=== PATIENT | female | born 1980 | race Two or more races ===

== ENCOUNTER 2025-06-07 16:14 | Outpatient (AMB) | payer OTHER, SELFPAY ==
--- NOTE | 2025-06-07 16:21 | MHC.PC.OV ---
Vital Signs 06/07/25 16:31 Height 5 ft 6.5 in Weight 191 lb 2 oz BMI 30.4 BP 122/72 Blood Pressure Location Rt brachial Position Sitting Respiration 17 Pulse 111 H Pulse Source Pulse Oximeter Temp 97.7 F Temp Source Oral Pulse Oximetry (%) 98 Oxygen Delivery Method Room Air Intake Visit Reasons: SUPPORT SERVICE TECH-Establish Care Intake Note: Patient present to establish care. Circuit Walker Required: No Circuit Walker Name: Doctor speaks tuvaluan Allergies No Known Allergies Allergy (Verified 06/07/25 16:26) Medication List - Last Reconciled 06/08/25 by Kevin Gooden MD alprazolam 0.5 mg PO TID PRN azelastine 2 sprays intranasal BID escitalopram oxalate 20 mg PO QAM hydroxyzine pamoate 50 mg PO BID PRN ibuprofen 800 mg PO Q8H polyethylene glycol 3350 (Miralax) 17 grams PO DAILY zolpidem 10 mg PO BEDTIME Tobacco use date assessed: 06/07/25 Dental Screening Dental Screen Date: 06/07/25 Did you have a dental visit in the last 12 months?: Yes Did you have a dental problem in the last 6 months where you did not have access to dental care?: No Was dental information given to patient?: Patient has dentist HPI HPI Comments History of Present Illness Details History of Present Illness The patient is a 44 year old female presenting for a general medical evaluation due to not having seen a doctor in three years, and with complaints of headaches and dizziness. Psychiatric Conditions: The patient has established psychiatric diagnoses including bipolar disorder, post-traumatic stress disorder (PTSD), anxiety, and schizophrenia. She receives mental health care from a psychiatrist, Dr. Peres, and takes several medications including alprazolam in the morning, afternoon, and evening, as well as zolpidem. Headaches: The patient reports experiencing a lot of headaches and associated dizziness. She also reports a constantly stuffy nose, which may contribute to her headaches. Right Shoulder Pain: The patient has had persistent right arm pain since an accident. She was previously offered surgery for the condition but declined. Tachycardia: The patient was found to have a heart rate of 111 beats per minute during the visit, which may be related to her medications. Constipation: She reports issues with bowel movements, specifically constipation. Health Maintenance: The patient has not had a medical check-up in three years. There is an unclear history regarding a diagnosis of diabetes; a doctor previously told her she had it, but this was later refuted by another provider due to her mental health status. The patient reports getting sick easily as the reason for wearing a mask. Her last Pap smear is unknown. Surgical History: - The patient denies any prior surgeries. Medications: - Alprazolam, taken in the morning, afternoon, and at night - Zolpidem - Droxicin (phonetic, likely hydroxyzine) - The patient is unsure if she takes Escitalopram. Social History: - The patient is originally from [place], [place]. - She lives at home. - She has one son and multiple grandchildren. Past Medical History - Psychiatric: Bipolar disorder, PTSD, anxiety, schizophrenia. - Musculoskeletal: Right arm injury secondary to an accident. - Hospitalizations: Previously hospitalized for 10 days for a non-surgical issue. - Past Evaluation: An evaluation ruled out a hernia. Health Maintenance - Ordered comprehensive baseline lab work including a complete blood count (CBC), comprehensive metabolic panel (CMP), thyroid panel, hemoglobin A1c, lipid panel, vitamin B12, folate, vitamin D, and serologies for hepatitis B, C, HIV, and syphilis. - Discussed mammogram screening, advising it is due at age 46. [facility] Family History (Updated 06/07/25 @ 16:29 by Willie Crandall CMA) Other Mental health disorder Social History (Updated 06/07/25 @ 16:29 by Willie Crandall CMA) Housing: House Alcohol intake: never Patient Tobacco Use Status: Never used Tobacco e-Cigarette/Vaping Use: Never Used service: No Current occupational status: disabled Cognitive needs: Yes Hearing needs: No Vision needs: No Questionnaire PHQ-9 Over the last 2 weeks, how often have you been bothered by any of the following problems? 1. Little interest or pleasure in doing things: nearly every day 2. Feeling down, depressed, or hopeless: nearly every day 3. Trouble falling or staying asleep, or sleeping too much: nearly every day 4. Feeling tired or having little energy: nearly every day 5. Poor appetite or overeating: nearly every day 6. Feeling bad about yourself - or that you are a failure or have let yourself or your family down: nearly every day 7. Trouble concentrating on things, such as reading the newspaper or watching television: nearly every day 8. Moving or speaking so slowly that other people could have noticed. Or the opposite - being so fidgety or restless that you have been moving around a lot more than usual: several days 9. Thoughts that you would be better off or of hurting yourself in some way: not at all Total score: 22 Depression Screening Interpretation: Positive Depression Screening Follow-up: Existing condition and In treatment Depression Screening Done: Yes 31721 - PHQ-9 Billing: Yes Source: Developed by Drs. Hal Us, Larissa Beard, Nicholas Andujar and colleagues, with an educational sudha from [employer]. Thrive Questionnaire Date Thrive assessed: 06/07/25 I am a: Patient What is your living situation today?: I have a steady place to live Within the past 12 months, did the food you bought not last and you didn't have the money to get more?: Never true Within the past 12 months, did you worry whether your food would run out before you got money to buy more?: Never true Do you have trouble paying for medicines?: No Do you have trouble getting transportation to medical appointments?: No Do you have trouble paying your heating and electricity bill?: No Do you have trouble taking care of your child, family member or friend?: No Do you have trouble with day-to-day activities such as bathing, preparing meals, shopping, managing finances, etc.?: No Are you currently unemployed and looking for a job?: No Are you interested in more education?: No Please select the resources that you would like help with: None Currently or been in a relationship where the following occur: No concerns reported THRIVE Score: 0 AUDIT C Alcohol Use Questionnaire (AUDIT-C) 1. How often do you have a drink containing alcohol?: Never Total Score: 0 DAMIR-7 AMB Questionnaire DAMIR-7 Date DAMIR - 7 assessed: 06/07/25 Feeling nervous, anxious, or on edge: 3 = Nearly every day Not being able to stop or control worryin = More than half the days Worrying too much about different things: 2 = More than half the days Trouble relaxin = More than half the days Being so restless that it is hard to sit still: 2 = More than half the days Becoming easily annoyed or irritable: 2 = More than half the days Feeling afraid as if something awful might happen: 2 = More than half the days Total DAMIR-7 score (0-4 normal; 5-9 mild; 10-14 moderate; 15-21 severe): 15 Source: Developed by Drs. Hal Us, Larissa Beard, Nicholas Andujar and colleagues, with an educational sudha from [employer]. DAMIR-7 Assessment Billing DAMIR-7 Assessment Tool: DAMIR-7 Assessment 45687 Review of Systems Narrative Review of Systems - CONSTITUTIONAL: Reports getting sick easily. - NEUROLOGICAL: Reports headaches and dizziness. - CARDIOVASCULAR: Reports having tachycardia. - GASTROINTESTINAL: Reports constipation. - MUSCULOSKELETAL: Reports pain in her right arm/shoulder since an accident. - ENT: Reports her nose is always congested. - PSYCHIATRIC: Reports history of bipolar disorder, PTSD, anxiety, and schizophrenia. 10-point ROS reviewed and negative except as noted in HPI Physical exam (Primary Care) Vital Signs: Last Vital Signs Temp 97.7 F 06/07/25 16:31 Pulse 111 H 06/07/25 16:31 Resp 17 06/07/25 16:31 BP 122/72 06/07/25 16:31 Pulse Ox 98 06/07/25 16:31 Oxygen Delivery Method Room Air 06/07/25 16:31 BMI result Body Mass Index 30.4 Tobacco/Smoking Status: Tobacco use Status Tobacco use date assessed 06/07/25 06/07/25 16:33 Patient Tobacco Use Status Never used Tobacco 06/07/25 16:33 e-Cigarette/Vaping Use Never Used 06/07/25 16:33 PHQ-9: PHQ-9 Score PHQ-9: Total score 22 06/07/25 16:33 Depression Screening Interpretation: Positive Depression Screening Follow-up: Existing condition and In treatment Thrive Assessment: Date of Thrive Assessment Date Thrive assessed 06/07/25 06/07/25 16:23 Currently or been in a relationship where the following occur: No concerns reported Narrative Physical Exam General: Well-appearing, in no acute distress. Vital signs: Tachycardia noted, heart rate at 111. HEENT: Normocephalic, atraumatic. PERRLA, EOMI. Conjunctiva clear, sclera anicteric. Oropharynx clear, mucous membranes moist. TMs intact bilaterally. Neck: Supple, no lymphadenopathy, no thyromegaly, no JVD or carotid bruits. Cardiovascular: RRR, normal S1/S2, no murmurs, rubs, or gallops. Peripheral pulses 2+ and symmetric. No edema. Respiratory: Lungs clear to auscultation bilaterally, no wheezes, rales, or rhonchi. Normal effort. Abdomen: Soft, non-tender, non-distended. Normoactive bowel sounds. No hepatosplenomegaly, no masses. MSK: Limited range of motion in the right shoulder, difficulty lifting, passive and active range of motion limited. Skin: Warm, dry, intact. No rashes, lesions, or pallor. Neuro: Alert and oriented x3. Cranial nerves II-XII intact. Strength 5/5 throughout. Sensation intact. Reflexes 2+ symmetric. Normal coordination and gait. Psych: Appropriate mood and affect. Normal judgment and insight. Diagnosed with anxiety, schizophrenia, and bipolar disorder. Taking alprazolam and zolpidem. Coding Level of Care Code New Pt Level 4 (72205) Add On Problem Visit Only Diagnoses Bipolar disease, chronic F31.9 PTSD (post-traumatic stress disorder) F43.10 Anxiety F41.9 Schizophrenia F20.9 Stiffness of right shoulder, not elsewhere classified M25.611 Headache R51.9 Right shoulder pain M25.511 Tachycardia R00.0 Constipation K59.00 Use of cane as ambulatory aid Z99.89 Gait instability R26.81 Nasal congestion R09.81 Class 1 obesity E66.811 Additional Codes DAMIR-7 Assessment Billing - DAMIR-7 Assessment Tool: DAMIR-7 Assessment 50497 ([id number]) PHQ-9 - 54531 - PHQ-9 Billing: Yes ([id number]) Assessment & Plan Assessment & Plan (1) Bipolar disease, chronic: Code(s): F31.9 - Bipolar disorder, unspecified Category: Medical (2) PTSD (post-traumatic stress disorder): Code(s): F43.10 - Post-traumatic stress disorder, unspecified Category: Medical (3) Anxiety: Code(s): F41.9 - Anxiety disorder, unspecified Category: Medical (4) Schizophrenia: Code(s): F20.9 - Schizophrenia, unspecified Category: Medical (5) Stiffness of right shoulder, not elsewhere classified: Code(s): M25.611 - Stiffness of right shoulder, not elsewhere classified Category: Medical (6) Headache: Code(s): R51.9 - Headache, unspecified Category: Medical (7) Right shoulder pain: Code(s): M25.511 - Pain in right shoulder Category: Medical (8) Tachycardia: Code(s): R00.0 - Tachycardia, unspecified Category: Medical (9) Constipation: Code(s): K59.00 - Constipation, unspecified Category: Medical (10) Use of cane as ambulatory aid: Code(s): Z99.89 - Dependence on other enabling machines and devices Category: Medical (11) Gait instability: Code(s): R26.81 - Unsteadiness on feet Category: Medical (12) Nasal congestion: Code(s): R09.81 - Nasal congestion Category: Medical (13) Class 1 obesity: Code(s): E66.811 - Obesity, class 1 Category: Medical Plan Consent Consent for the physical examination and planned diagnostic studies, including blood work and imaging, was implicitly obtained through the patient's cooperation and verbal agreement during the consultation. Patient was informed and verbally consented to the use of an ambient scribe for clinic note documentation during this visit. Plan 1. Headaches And Nasal Congestion - To address nasal congestion, which may be contributing to headaches, prescribed a nasal spray to be used as two sprays per nostril twice daily. - For headache pain, prescribed Ibuprofen 600 mg to be taken as needed. 2. Right Shoulder Pain - Will obtain an X-ray of the right shoulder to further evaluate the chronic pain and limited motion. 3. Constipation - Recommended MiraLAX for management of constipation. Discussion Notes I have reviewed the plan of care with the patient. Given that she has not seen a doctor in several years, we will start with a comprehensive set of blood tests to screen for common conditions such as anemia, electrolyte abnormalities, kidney and liver issues, diabetes, high cholesterol, vitamin deficiencies, and several infectious diseases. To address her headaches, I am prescribing ibuprofen for pain and a nasal spray for her chronic nasal congestion, as the two may be related. For her chronic right shoulder pain, we will proceed with an X-ray to better understand the underlying issue. She was advised that she can get her blood drawn at the lab between 9 AM and 4 PM. Patient Instructions - Please go to the laboratory to have your blood drawn. - Use the prescribed nasal spray for your stuffy nose, using two sprays in each nostril twice a day. - Take Ibuprofen 600 mg as needed for your headaches. - You can use MiraLAX to help with constipation. - We will be getting X-rays of your right shoulder. - Your next mammogram is not needed until you turn 46. Medical Decision Making The patient is a 44-year-old female with a significant psychiatric history, including bipolar disorder, PTSD, anxiety, and schizophrenia, who presents to re-establish primary care after a three-year interval. Her chief complaints are headaches and dizziness. She was noted to have tachycardia with a heart rate of 111 bpm, which may be a side effect of her psychiatric medications or related to her anxiety. Given the lack of recent medical oversight, a comprehensive screening approach is warranted. I have ordered extensive lab work to establish a baseline and screen for common chronic illnesses, including a CBC, CMP, lipid panel, HbA1c, thyroid function tests, vitamin levels (B12, D, folate), and infectious diseases (HIV, hepatitis, syphilis). For her headaches, which could be multifactorial, I am starting with symptomatic treatment with ibuprofen and addressing her concomitant nasal congestion with a nasal spray. Her chronic right shoulder pain, which is post-traumatic and associated with limited range of motion on exam, requires further investigation with an X-ray to rule out significant osseous pathology. Her constipation will be managed with MiraLAX. The goal of this visit is to address her acute concerns while initiating a thorough, preventative health evaluation. Total Time Statement 30 MIN Total time spent caring for the patient today includes pre-visit chart review, documentation, review of laboratory and diagnostic imaging results, medication reconciliation, medically necessary evaluation, counseling on diagnoses, care coordination, ordering appropriate tests and medications, review of tests performed by other providers, reporting test results to the patient, and communication with other healthcare providers. Orders: Orders Complete Blood Count Auto Diff Today Z13.9 - Encounter for screening, unspecified Comprehensive Met. Panel Today Z13.9 - Encounter for screening, unspecified Hepatitis C Antibody Today Z13.9 - Encounter for screening, unspecified UA CC w/rflx Micro + Cult Today Z13.9 - Encounter for screening, unspecified Vitamin B12 and Folate Today Z13.9 - Encounter for screening, unspecified Magnesium Today Z13.9 - Encounter for screening, unspecified Hepatitis B Surface Antibody Today Z13.9 - Encounter for screening, unspecified Vitamin D 25-OH (D2 and D3) Today Z13.9 - Encounter for screening, unspecified Hepatitis B Surface Antigen Today Z13.9 - Encounter for screening, unspecified Syphilis Screen Today Z13.9 - Encounter for screening, unspecified TSH reflex Free T4 Today Z13.9 - Encounter for screening, unspecified HIV Ab/Ag Today Z13.9 - Encounter for screening, unspecified Lipid Panel Today Z13.9 - Encounter for screening, unspecified Hemoglobin A1c Today Z13.9 - Encounter for screening, unspecified XR shoulder RT min 2V Today M25.611 - Stiffness of right shoulder, not elsewhere classified Medications: New polyethylene glycol 3350 (Miralax) 17 grams PO DAILY 476 grams 0RF azelastine administer into each nostril 2 sprays intranasal BID 30 mL 0RF ibuprofen 800 mg PO Q8H 30 tabs 0RF
[2025-06-07 16:31] VITALS: BP 122/72; PULSE 111; RESP 17; TEMP 36.5; O2SAT 98; BMI 30.4
--- OUTSIDE RECORDS SUMMARY | 2025-06-07 17:57 | XMS_ITS | Clinical Summary ---
[facility] Address [id number] [place] [id number] Care Team Providers Care Oceanography Professor Name Role Phone Abdullahi Ricardo MD Primary Care Provider [phone] Surgical History Surgery Date Site/Laterality Comments OTHER SURGICAL HISTORY 12/20 PROCEDURE: ---- OTHER ----; COMMENT: Gynecologic unknown surgery TUBAL LIGATION 2002 PROCEDURE: HISTORICAL TUBAL LIGATION OTHER SURGICAL HISTORY 04/2018 PROCEDURE: ---- OTHER ----; COMMENT: Lipoma resection Medical History Medical History Date Comments Anxiety 07/29/2013 DX:Anxiety Depression 07/29/2013 DX:Depression Bipolar disorder ([facility]/HCC V2 4, [facility]/HCC V28) 07/29/2013 DX:Bipolar disorder ([facility]) Nephrolithiasis age 15 DX:Nephrolithias is; COMMENT: [facility] sonogram Family History Medical History Relation Name Comments Diabetes Father Breast cancer Maternal Grandmother Other: pelvic cancer? Mother Relation Name Status Comments Father Alive DM Maternal Grandfather Maternal Grandmother Mother (Age 56) Pancreatic cancer Paternal Grandfather Alive Paternal Grandmother Alive Social History Tobacco Use Types Packs/Day Years Used Date Smoking Tobacco: Never Smokeless Tobacco: Never Alcohol Use Standard Drinks/Week Comments No 0 (1 standard drink = 0.6 oz pur e alcohol) Comments Unknown Sex and Gender Information Value Date Recorded Sex Assigned at Not on file Legal Sex Female 12:25 PM EST Gender Identity Not on file Sexual Orientation Not on file Plan of Treatment Health Maintenance Due Date Last Done Comments Breast Cancer Screening 1981 Hepatitis B Vaccines (1 of 3 - 19+ 3-dose series) 2000 HPV Vaccines (1 - 3-dose SCD M series) 2008 Cervical Cancer Screening: P ap Smear 02/18/2021 02/18/2018 DTaP,Tdap,and Td Vaccines (2 - Td or Tdap) 07/29/2023 07/29/2013 Depression Screening 06/10/2024 COVID-19 Vaccine (1 - 2024-2 6 season) 2025 Influenza Vaccine (#1) 2025 RSV Immunization Adult Patie nts (1 - 1-dose 75+ series) 2056 HIB Vaccines Aged Out No longer eligi ble based on patient's age to complete this topic Hepatitis A Vaccines Aged Out No long er eligible based on patient's age to complete this topic IPV Vaccines Aged Out No longer eligi ble based on patient's age to complete this topic MMR Vaccines Aged Out No longer eligi ble based on patient's age to complete this topic Meningococcal ACWY Vaccine Aged Out N o longer eligible based on patient's age to complete this topic Meningococcal B Vaccine Aged Out No l onger eligible based on patient's age to complete this topic Pneumococcal Vaccine: Pediat rics (0 to 5 Years) and At-Risk Patients (6 to 49 Years) Aged Out No longer eligi ble based on patient's age to complete this topic RSV Immunization Patients Un violeta 20 months Aged Out No longer eligible b ased on patient's age to complete this topic Varicella Vaccines Aged Out No longer eligible based on patient's age to complete this topic Procedures Procedure Name Priority Date/Time Associated Diagnosis Comments PAP SMEAR Routine 02/18/2018 from Last 3 Months or Most Recently Relevant to Health Maintenance Results * Pap smear (02/18/2018) 02/18/2018 Narrative HISTORICAL TESTING LAB RESULTING AGENCY - 02/20/2018 4:41 PM EDT [id number] THINPREP PAP, IMAGED: NEGATIVE FOR SQUAMOUS INTRAEPITHELIAL LESION AND MALIGNANCY . RESULT OF APTIMA HIGH RISK HPV ASSAY: NEGATIVE (SEROTYPES 16,18,31,33,35,39,45,51,52,56,58,59,66,68) RYLIE FRANKEL(ASCP) (CASE ELECTRONICALLY SIGNED 02 20 2018) ADEQUACY: SATISFACTORY. ENDOCERVICAL/TRANSFORMATION ZONE COMPONENT ABSENT. SOURCE: THINPREP PAP HPV ANY DX: REFLEX 16 AND 18, CERVICAL, IMAGED: CLINICAL INFORMATION: HPV ANY DIAGNOSIS. PAP HX NEG [Z12.4, Z01.419] us Giulia Coates CNM LAB CYTOLOGY ORDERABLES Nuzhat garduno Result HISTORICAL TESTING LAB RESULTING AGENCY from Last 3 Months or Most Recently Relevant to Health Maintenance Care Teams Oceanography Professor Relationship Specialty Start Date End Date Abdullahi Ricardo MD PCP - General Internal Medicine 04/04/21
--- OUTSIDE RECORDS SUMMARY | 2025-06-07 17:57 | XMS_ITS | Data Portability ---
Author Organization [employer] [facility], [facility] Medical [facility] Address [address] [place] [address] Care Team Providers Care Hand Tufter Name Role Phone HIM CCA OTHER Assessment Encounter Date Assessment Date Assessment LastModified by Organization Details LastModified Time 11/26/2023 11/26/2023 I have reviewed and agree with the Assessment and Plan as documented by the Information Tech. I provided real-time medical direction via phone for this encounter, and was available for additional phone based assistance as needed. Patient seen for wrist pain to the right wrist. No clear trauma. AVSS and well-appearing with no fever chills or myalgias. No erythema, nontender and full range of motion. Has had previous similar symptoms which have responded to ibuprofen however she has not tried this or discussed this with her PCP. Doubt cellulitis or septic arthritis given clinical exam. Will trial ice, elevation, rest and NSAIDs with strict instructions for PCP/care team follow-up for further in person evaluation. Patient in agreement. Red flags for ED presentation discussed pallfather Not available 12/17/2023 14:54:23 Plan of Treatment Reminders Order Date Submit Date Provider Last Modified By Organization Details Last Modified Time Details Appointments None record ed. Lab None record ed. Referral None record ed. Procedures None record ed. Surgeries None record ed. Imaging None record ed. Medication Orders None record ed. Patient TargetsNo targets recorded. Patient InstructionsNo instructions recorded. Reason for Referral None Reported. Medical Equipment None Reported. Medications Name Sig Start Date Stop Date Status Note LastModified by Organization Details LastModified Time clonazepam 1 mg tablet active Not Available Not Available No t Available alprazolam 0.5 mg tablet TAKE 1 TABLET BY MOUTH TWICE DAILY NEEDED active Not Available Not Available No t Available clonazepam 2 mg tablet TAKE 1 TABLET BY MOUTH TWICE A DAY NEEDED STOPP IF PATIENT BECAME SEDATED.DIS CONTINUE ALPRAZOLAM active Not Available Not Available N ot Available divalproex 125 mg tablet,delay ed release TAKE 1 TABLET BY MOUTH THREE TIMES DAILY DIRECTED active Not Available Not Available Not Available alprazolam 2 mg tablet TAKE 1 TABLET BY MOUTH TWICE DAILY active Not Available Not Available No t Available zolpidem 10 mg tablet TAKE 1 TABLET BY MOUTH AT BEDTIME FOR SLEEP active Not Available Not Available No t Available prazosin 2 mg capsule TAKE 1 CAPSULE BY MOUTH AT BEDTIME FOR NIGHTMARES active Not Available Not Available N ot Available hydroxyzine pamoate 25 mg capsule TAKE 1 CAPSULE BY MOUTH TWICE DAILY NEEDED FOR SEVERE ANXIETY active Not Available Not Available No t Available escitalopram 20 mg tablet TAKE 1 TABLET BY MOUTH EVERY MORNING active Not Available Not Available No t Available guanfacine ER 1 mg tablet,exten ded release 24 hr TAKE 1 TABLET BY MOUTH EVERY MORNING FOR ADHD active Not Available Not Available No t Available Vitals Date Recorded Oxygen saturation Heart rate Body temperature Respiratory rate Systolic And Diastolic Provider Name and Address Organization Details Last Updated DateTime 4 99 % 70 /min 98.3 [degF] 18 /min 122/88 mm[Hg] Not Available [facility] - production 4 13:55:35 Social History None recorded. Functional Status None recorded. Mental Status None recorded. Family History Nothing Reported. Medical History No medical history recorded. Gynecological HistoryNo gynecological history recorded. Obstetrics History GPAL:G 0 P 0 0 0 0 Past Encounters Encounter ID Performer Location Encounter Start Date Encounter Closed Date Diagnosis/Indication Diagnosis SNOMED-CT Code Diagnosis ICD10 Code Diagnosis IMO Codes Diagnosis Note [id number] Odell Jewell MD [facility] [address] [place] [phone] 11/26/2023 13:55:33 12/17/2023 17:15:13 Pain of wrist region 25978868 M25.539 Health Concerns Section Related Observation LastModified by Organization Detai ls LastModified Time None Recorded Concern Status LastModified by Organization Details LastModified Time None Recorded Advance Directives Directive None Recorded Payers Insurance Date Sequence Insurance Name Policy Number Policy May Covered Member ID May Member ID Guarantor Name 12/17/2023 1 [facility] - DOS ON OR AFTER 2022 - DUAL ELIGIBLE - INTERMEDIATE OPTIONS AND ONE CARE (MEDICARE REPLACEMENT/ADV ANTAGE - HMO) Bety Beaulieu [id number] Betyviviane Beaulieu Notes Date Note Type Note Provider Name and Address Organization Details Recorded Time 11/26/2023 text/html [facility] Nurse Triage Notes (Corina Iqbal): Reason For Request: Pain Chief Complaints: Pain, Edema PMH: Other Allergies: No Known Comments: Agriculture Sales Account Manager verified the member's name//address and phone number. Member is a sami speaking 42 yr old female PMH > chronic pain, anxiety, The financial services specialist called for a member with right arm pain and swelling; the member denies any fall or injury. Member did hurt herself , 3 weeks ago , getting out of bed, did not get xrays but it has been painful but went away and is back. Member has elevated arm with no change. Member has chronic pain, takes tylenol. Member is aware we do not offer xrays Education provided on the response time and the member was advised to monitor reported s/s and seek emergency treatment if needed .................. .................. .................. .................. .................. .................. .................. ............... Information Tech Note From Gibran Zheng: Dispatched to the call address for the female with arm pain. Pt states for the last week or so she has had right arm pain in the wrist area. She states it is painful to use her hand but she can use it. She advises she has taken Tylenol with mild effect. She has used Motrin in the past with good effect but has not taken any recently. Pt states she has not called her PCP or had any imaging done and denies any trauma to the area that she can think of. Pt was found opening door, CAOx4, airway open and patent, breathing non labored, able to speak in full sentences, -JVD, -HEENT, skin PWD with good turgor, mucous membranes pink and moist, lungs CTA, abd soft non tender/distended, pupils PERRL, +CMSx4, right wrist area with mild edema compared to the left wrist. Area non tender and with full range of motion. [facility] consulted. Pt advised to ice it for 15mins at a time 4-5 minutes a day. Pt also advised to take 600mg of Ibuprofen every six hours. Pt recommended to call PCP or go to urgent care for imaging. Red flags discussed. ALL times are approx. .................. .................. .................. .................. .................. .................. .................. ............... Disposition: Fulfilled Odell Jewell MD [address], [place], [address], [place] - [employer] 12/17/2023 14:54:31 OBGyn Episode No OBEpisode recorded.
== END 2025-06-07 17:11 | disposition home or self-care (01) ==
LOC: HO.HMCFMS 16:15
PROVIDERS: PCP Nurse Practitioner Family; Visit Provider Student in an Organized Health Care Education/Training Program
DX: F31.9 Bipolar disorder, unspecified (principal); F43.10 Post-traumatic stress disorder, unspecified; F41.9 Anxiety disorder, unspecified; F20.9 Schizophrenia, unspecified; M25.611 Stiffness of right shoulder, not elsewhere classified; R51.9 Headache, unspecified; M25.511 Pain in right shoulder; R00.0 Tachycardia, unspecified; K59.00 Constipation, unspecified; Z99.89 Dependence on other enabling machines and devices; R26.81 Unsteadiness on feet; R09.81 Nasal congestion; E66.811 Obesity, class 1

== ENCOUNTER → 2025-06-07 16:14 | Outpatient (BNVA) | payer OTHER, SELFPAY | PROVIDERS: PCP Nurse Practitioner Family; Visit Provider Student in an Organized Health Care Education/Training Program | DX: F31.9 Bipolar disorder, unspecified (principal); F43.10 Post-traumatic stress disorder, unspecified; F41.9 Anxiety disorder, unspecified; F20.9 Schizophrenia, unspecified; R51.9 Headache, unspecified; M25.511 Pain in right shoulder; M25.611 Stiffness of right shoulder, not elsewhere classified; R00.0 Tachycardia, unspecified; K59.00 Constipation, unspecified; R26.81 Unsteadiness on feet; R09.81 Nasal congestion; E66.811 Obesity, class 1; Z68.30 Body mass index [BMI] 30.0-30.9, adult; Z99.89 Dependence on other enabling machines and devices; Z71.3 Dietary counseling and surveillance | CPT/HCPCS: 96127; 99202 ==

== ENCOUNTER 2025-06-08 10:15 | Outpatient (REF) | payer OTHER, SELFPAY ==
--- OUTSIDE RECORDS SUMMARY | 2025-06-08 13:39 | XMS_ITS | Clinical Summary ---
Author Organization [facility] Address [id number] [place] [phone] Care Team Providers Care Building Inspection Engineer Name Role Phone Abdullahi Ricardo MD Primary Care Provider Surgical History Surgery Date Site/Laterality Comments OTHER SURGICAL HISTORY 12/20 PROCEDURE: ---- OTHER ----; COMMENT: Gynecologic unknown surgery TUBAL LIGATION 2002 PROCEDURE: HISTORICAL TUBAL LIGATION OTHER SURGICAL HISTORY 04/2018 PROCEDURE: ---- OTHER ----; COMMENT: Lipoma resection Medical History Medical History Date Comments Anxiety 07/29/2013 DX:Anxiety Depression 07/29/2013 DX:Depression Bipolar disorder ([facility]/HCC V2 4, [facility]/HCC V28) 07/29/2013 DX:Bipolar disorder ([facility]) Nephrolithiasis age 15 DX:Nephrolithias is; COMMENT: [facility] [...] RESULTING AGENCY - 02/20/2018 4:41 PM EDT [id number] THINPREP PAP, IMAGED: NEGATIVE FOR SQUAMOUS INTRAEPITHELIAL [...] Recently Relevant to Health Maintenance Care Teams Building Inspection Engineer Relationship Specialty Start Date End Date Abdullahi Ricardo MD PCP - General Internal Medicine 04/04/21
[2025-06-08 14:08] LABS: Appearance Urine Turbid; Glucose Urine UA Negative (Negative); PH 5.5 (5.0-9.0); Specific Gravity - Urine 1.025 (1.005-1.025)
[2025-06-08 14:10] LABS: MANUAL DIFF FLAG NO
[2025-06-08 14:12] LABS: Hematocrit 37.0 % (37.0-47.0); Hemoglobin 12.2 g/dl (12.0-16.0); Imm Gran Abs Auto 0.03 X10*3/uL (0.00-0.03); Imm Gran Pct Auto 0.3 % (0.0-0.4); Lymphocytes Absolute Auto 2.6 X10*3/uL (1.2-4.9); Mean Corpuscular HGB Conc 33.0 g/dl (31.0-35.0); Mean Corpuscular Hemoglobin 27.5 pg (27.0-33.0); Mean Corpuscular Volume 83.5 fL (80.0-98.0); NRBC Abs Auto 0.000 X10*3/uL (0.0-0.012); NRBC Pct Auto 0.0 /100WBC (0.0-0.2); Platelet Count 246 X10*3/uL (160-400); Red Blood Count 4.43 X10*6/uL (4.20-5.50); White Blood Count 9.4 X10*3/uL (4.8-10.8)
[2025-06-08 14:48] LABS: Alanine Aminotransferase 11 U/L (0-31); Albumin Level 4.2 g/dL (3.5-5.0); Alkaline Phosphatase 70 U/L (39-117); Anion Gap 11 (12-20); Aspartate Amino Transferase 40 U/L (5-31); Blood Urea Nitrogen 19 mg/dL (9-16); Calcium 9.0 mg/dL (8.4-10.2); Carbon Dioxide 22 mmol/L (22-29); Chloride 112 mmol/L (96-108); Cholesterol 148 mg/dL (<200); Estimated Glomerular Filt Rate > 60; HDL Cholesterol 36 mg/dL (>40); Magnesium 2.1 mg/dL (1.6-2.6); Potassium 4.2 mmol/L (3.3-5.1); Sodium 141 mmol/L (135-145); Total Protein 6.8 g/dL (6.5-8.0); Triglycerides 208 mg/dL (<150)
[2025-06-08 15:14] LABS: Folate 8.9 ng/mL (> or = 4.0); Vitamin B12 951 pg/mL (200-900)
[2025-06-09 03:38] LABS: Syphilis Screen Nonreactive (Nonreactive)
[2025-06-09 03:59] LABS: HBS Num1 0.00 mIU/mL (0-7.99); HBsAGNum1 0.41 S/CO (0.00-0.99); HIV Num 1 0.05 S/CO (0.00-0.99); Hepatitis B Surface Antigen Negative (Negative); ~HepC Num1 0.13 S/CO (0.00-0.79); ~Hepatitis B Surface Antibody NONREACTIVE (Nonreactive); ~Hepatitis C Antibody Nonreactive (Nonreactive)
== END 2025-06-08 10:16 | disposition home or self-care (01) ==
LOC: HO.HKASLDS 10:15
PROVIDERS: PCP Student in an Organized Health Care Education/Training Program; Visit Provider Student in an Organized Health Care Education/Training Program
DX: Z13.89 Encounter for screening for other disorder (principal); Z01.84 Encounter for antibody response examination; Z11.4 Encounter for screening for human immunodeficiency virus [HIV]; Z13.6 Encounter for screening for cardiovascular disorders; Z13.1 Encounter for screening for diabetes mellitus; Z13.21 Encounter for screening for nutritional disorder; Z13.29 Encounter for screening for other suspected endocrine disorder
CPT/HCPCS: 36415; 80053; 80061; 81003; 82306; 82607; 82746; 83036; 83735; 84443; 85025; 86706; 86780; 86803; 87340; 87389